=== PATIENT | male | born 1995 | race American Indian/Alaskan Native ===

== ENCOUNTER 2020-12-10 00:04 | Emergency (ER) | payer OTHER, BC ==
[2020-12-10 01:42] VITALS: BP 145/70
[2020-12-10] MEDS ORDERED: TETANUS,DIPH,PERTUSS(ACELL) VACCINE 0.5 ML SYRINGE IM ONE (04:55)
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
[2020-12-10] MEDS ORDERED: KETAMINE 500 MG/5 ML VIAL MDV ONE (18:06)
== END 2020-12-10 05:13 | disposition home or self-care (01) ==
LOC: ED 00:04
DX: S21.152A Open bite of left front wall of thorax without penetration into thoracic cavity, initial encounter (principal); Z79.899 Other long term (current) drug therapy; W50.3XXA Accidental bite by another person, initial encounter; Y93.89 Activity, other specified; Y92.89 Other specified places as the place of occurrence of the external cause; Y99.8 Other external cause status
CPT/HCPCS: 90471; 90715; 99282